=== PATIENT | female | born 1975 | race Caucasian/White ===

== ENCOUNTER 2023-11-04 09:31 | Emergency (ER) | payer SELFPAY | END 2023-11-04 09:42 | disposition left against medical advice (07) | LOC: ER 09:41 | DX: Z00.00 Encounter for general adult medical examination without abnormal findings (principal); Z53.21 Procedure and treatment not carried out due to patient leaving prior to being seen by health care provider ==

== ENCOUNTER → 2023-11-05 | Emergency (ER) | payer MEDICAID ==
[~2023-11-05] VITALS: Ht 170.2 cm; Wt 63.0 kg
--- NOTE | 2023-11-05 20:06 | NUR ---
[id number] from [facility] for seizure like activity [id number] -postictal -incontinence -oral trauma; takes unknown szr meds unknown compliance, placed to bed hooked into a monitor, seizure precaution applied by padded side rails.
[2023-11-05] MEDS: IV NS 0.9% 1,000 ML BAG IV ONE (20:30)
--- NOTE | 2023-11-05 20:30 | NUR ---
CERTIFIED MEDICINE AIDE AT BEDSIDE
--- NOTE | 2023-11-05 20:30 | NUR ---
INSERTED IV CANNULA G22 R HAND
[2023-11-05 20:33] LABS: BASOPHILS % (AUTO) 0.5 % (0.0-2.0); EOSINOPHILS # (AUTO) 0.1 K/uL (0.0-0.7); EOSINOPHILS % (AUTO) 0.9 % (0.0-6.0); HEMATOCRIT 37 % (33-45); HEMOGLOBIN 12.2 g/dL (11.5-14.8); LYMPHOCYTES # (AUTO) 1.9 K/uL (0.8-4.8); LYMPHOCYTES % (AUTO) 24.5 % (20.0-44.0); MEAN CORPUSCULAR HEMOGLOBIN 30 PG (26.0-33.0); MEAN CORPUSCULAR HGB CONC 33 g/dl (31.0-36.0); MEAN CORPUSCULAR VOLUME 91 fL (82-100); MONOCYTES % (AUTO) 12.5 % (2.0-12.0); NEUTROPHILS # (AUTO) 4.7 K/uL (1.8-8.9); NEUTROPHILS % (AUTO) 61.6 % (43.0-81.0); PLATELET COUNT (AUTO) 270 K/uL (150-450); RED BLOOD CELL COUNT(AUTO) 4.13 MIL/uL (4.0-5.2); RED CELL DISTRIBUTION WIDTH 15.2 % (11.5-15.0); WHITE BLOOD COUNT (AUTO) 7.6 K/uL (4.3-11.0)
[2023-11-05 20:44] LABS: CALCIUM, SERUM 10.8 mg/dL (8.5-10.1); CARBON DIOXIDE 26 mmol/L (21-32); CHLORIDE 101 mmol/L (98-107); CREATININE 0.9 mg/dL (0.6-1.3); GLUCOSE 100 mg/dL (74-106); POTASSIUM 3.9 mmol/L (3.5-5.1); SODIUM SERUM 138 mmol/L (136-145); UREA NITROGEN, BLOOD 21 mg/dL (7-18)
--- NOTE | 2023-11-05 20:45 | NUR ---
technical system analyst at bedside
[2023-11-05 20:46] LABS: ALCOHOL, BLOOD < 10 mg/dL (0-10)
[2023-11-05] MEDS: ACETAMINOPHEN ES 500 MG TABLET PO ONE (20:58)
[2023-11-05] MEDS: ONDANSETRON HCL/PF 4 MG/2 ML VIAL IV ONE (20:58)
--- NOTE | 2023-11-05 21:00 | NUR ---
pt is unable to void at this time
--- NOTE | 2023-11-05 21:25 | NUR ---
Pt taken to CT via [facility]
--- NOTE | 2023-11-05 21:35 | NUR ---
pt returned from [facility] via [facility]
[2023-11-05 22:24] VITALS: BP 121/65; TEMP 98.1; O2SAT 96
--- NOTE | 2023-11-05 22:24 | NUR ---
Patient discharged to home in stable condition. Written and verbal after care instructions given. Patient verbalizes understanding of instruction.
[2023-11-05 23:28] LABS: AMPHETAMINE, URINE NEGATIVE (NEGATIVE); BARBITURATE, URINE NEGATIVE (NEGATIVE); BENZODIAZEPINE, URINE NEGATIVE (NEGATIVE); CANNABINOID, URINE NEGATIVE (NEGATIVE); COCCAINE, URINE NEGATIVE (NEGATIVE); OPIATE, URINE NEGATIVE (NEGATIVE); PHENCYCLIDINE SCREEN,URINE NEGATIVE (NEGATIVE)
== END | disposition home or self-care (01) ==
LOC: ER 20:04
DX: R56.9 Unspecified convulsions (principal); R10.2 Pelvic and perineal pain; Z59.00 Homelessness unspecified
CPT/HCPCS: 99285; 96374; 96361; 93005; 70450; 85025; 80048; 36415; 82962; 84702; 80320; 80307; J2405; J7030; G0480